=== PATIENT | female | born 1955 | race African-American/Black ===

== ENCOUNTER 2019-09-10 02:35 | Inpatient (IN) | payer BC ==
[~2019-09-10] VITALS: Ht 170.2 cm; Wt 69.3 kg
[2019-09-10] MEDS ORDERED: ONDANSETRON PF 4 MG/2 ML VIAL. IM ONE (03:30)
[2019-09-10] MEDS ORDERED: IV NORMAL SALINE 1000ML BAG 1,000 ML IV ONE ×3 (03:30→08:00)
--- NOTE | 2019-09-10 03:54 | PHYS DOC ---
General Adult EDM: Chief Complaint: HYPOTENSION HPI: HPI: Patient is a 63 year old female presenting to the ED with a chief complaint of lightheadedness and near syncope. EMS state that patient had nausea, vomiting and diarrhea for 1 day. When EMS got the patient had a syncopal episode in front of them. Currently patient is alert and oriented x3. Patient complains of pain to her abdomen. Patient states that she had a bad food exposure and thinks that that is the cause of her symptoms. Patient states that the abdominal pain comes and goes. Patient denies fever, chills, chest pain, shortness of breath. Review of Systems: Review of Systems: Constitutional: Denies fever or chills. [] Eyes: Denies change in visual acuity. [] HENT: Denies nasal congestion or sore throat. [] Respiratory: Denies cough or shortness of breath. [] Cardiovascular: Denies chest pain or edema. [] GI: Complains of abdominal cramps, nausea, vomiting, diarrhea [] : Denies dysuria. [] Neurologic: Denies headache, focal weakness or sensory changes. [] Heart Score: Risk Factors: Risk Factors: DM, Current or recent (<one month) smoker, HTN, HLP, family history of CAD, obesity. Risk Scores: Score 0 - 3: 2.5% MACE over next 6 weeks - Discharge Home Score 4 - 6: 20.3% MACE over next 6 weeks - Admit for Clinical Observation Score 7 - 10: 72.7% MACE over next 6 weeks - Early Invasive Strategies Current Medications: Current Medications Medications (Trade) Dose Ordered Sig/[facility] Start Time Stop Time Status Last Admin Dose Admin Ondansetron HCl (Zofran) 4 mg 1X ONCE 09/10/19 03:30 09/10/19 03:31 DC Sodium Chloride 1,000 ml @ 1,000 mls/hr 1X ONCE 09/10/19 03:30 09/10/19 04:29 Allergies: Allergies: Allergies Coded Allergies Type Severity Reaction Last Updated Verified No Known Drug Allergies 09/10/19 No Physical Exam: PE: Constitutional: Well developed, well nourished, no acute distress, non-toxic appearance. [] HENT: Normocephalic, atraumatic Eyes: EOMI Neck: Normal range of motion, Supple Cardiovascular:Heart rate regular rhythm Lungs & Thorax: Bilateral breath sounds clear to auscultation [] Abdomen: Diffuse abdominal cramping Extremities: No tenderness, ROM intact Neurologic: Alert and oriented X 3 EKG: EKG: [EKG interpretation: 3: 08 on 09/10/2019 HR: 85 Sinus rhythm Regular intervals Normal axis Nonspecific ST changes No STEMI ] Radiology/Procedures: Radiology/Procedures: [] Impression: CT ABD/PELVIS IMPRESSION: 1. Multiple loops of small bowel demonstrating wall thickening and surrounding inflammation consistent with nonspecific enteritis, with considerations including infectious, inflammatory, or ischemic. 2. Mild perihepatic and moderate pelvic free fluid. 3. Colonic diverticulosis. Course & Med Decision Making: Course & Med Decision Making Pertinent Labs and Imaging studies reviewed. (See chart for details) Patient has leukocytosis of 13.0. Patient is received IV fluids in the ER. Patient is also given Zofran [address] abdomen pelvis shows that patient has severe colitis. Patient is given IV antibiotics in the ER. Due to patient presentation, pain control need for IV antibiotics, patient will be admitted for further evaluation and treatment. Will discuss with hospitalist service for admission. Carmenza Disclaimer: Carmenza Disclaimer: This electronic medical record was generated, in whole or in part, using a voice recognition dictation system. Departure Departure Impression: Primary Impression: Colitis Disposition: ADMITTED INPATIENT Admitting Physician: RYAN Condition: IMPROVED Referrals: DRE AGUIRRE MD (PCP) Justicifation of Admission Dx: Justifications for Admission: Justification of Admission Dx: Yes Comments: SEVERE COLITIS JAD DUQUE DO Sep 10, 2019 03:54
[2019-09-10 04:05] LABS: BASO % 0 % (0-3); EOS # 0.1 x10^3/uL (0.0-0.7); EOS % 1 % (0-3); HEMATOCRIT 44.4 % (36.0-47.0); HEMOGLOBIN 14.5 g/dL (12.0-15.5); LYMPH # 1.7 x10^3/uL (1.0-4.8); LYMPH % 13 % (24-48); MEAN CORPUSCULAR HEMOGLOBIN 28 pg (25-35); MEAN CORPUSCULAR HGB CONC 33 g/dL (31-37); MEAN CORPUSCULAR VOLUME 85 fL (79-100); MONO # 0.4 x10^3/uL (0.0-1.1); MONO % 3 % (0-9); NEUT # 10.7 x10^3/uL (1.8-7.7); NEUT % 83 % (31-73); PLATELET COUNT 313 x10^3/uL (140-400); RED BLOOD COUNT 5.24 x10^6/uL (3.50-5.40); RED CELL DISTRIBUTION WIDTH 14.7 % (11.5-14.5)
[2019-09-10] MEDS ORDERED: ONDANSETRON PF 4 MG/2 ML VIAL. IVP ONE (04:15)
[2019-09-10 04:16] LABS: CALCIUM 8.3 mg/dL (8.5-10.1); CREATININE 1.2 mg/dL (0.6-1.0); GFR 54.7; POTASSIUM 3.6 mmol/L (3.5-5.1)
[2019-09-10 04:20] LABS: ALBUMIN 3.2 g/dL (3.4-5.0); ALBUMIN/GLOBULIN RATIO 1.2 (1.0-1.7); TOTAL BILIRUBIN 0.4 mg/dL (0.2-1.0); TOTAL PROTEIN 5.9 g/dL (6.4-8.2)
[2019-09-10] MEDS ORDERED: CONTRAST GIVEN. MC PRN (04:30)
[2019-09-10 04:33] LABS: PROTHROMBIN TIME PATIENT 12.5 SEC (11.7-14.0)
[2019-09-10] MEDS ORDERED: IOHEXOL 300 MG/ML 100ML VIAL. IV ONE (05:00)
--- NOTE | 2019-09-10 05:03 | RAD ---
CT ABD PELV W/ IV CONTRST ONLY History: Reason: VOMITING/DIARRHEA OMNI 300, 75 ML IV / Spl. Instructions: / History: Comparison: None. Technique: After administration of intravenous contrast, helical CT of the abdomen and pelvis was performed from the lung bases through the ischial tuberosities. Coronal and sagittal reconstructions were obtained. 75 mL of Omnipaque 350 were used. One or more of the following dose reduction techniques were utilized: Automated exposure control (AEC), Adjustment of mA and/or kV according to patient size, Use of iterative reconstruction technique such as ASiR, CT scan done according to ALARA and image gently/image wisely Abdomen Findings: The visualized lung bases are clear. The liver, gallbladder, pancreas, spleen, and bilateral adrenal glands are normal. Symmetric renal enhancement. There is no focal renal mass. There is no hydronephrosis. Multiple loops of small bowel demonstrating wall thickening and surrounding inflammation. Moderate colonic diverticulosis. Appendix is normal. Mild perihepatic and moderate pelvic free fluid. There is no mesenteric or retroperitoneal adenopathy. Extensive aortoiliac atherosclerotic disease Urinary bladder is normal. Uterus is present. There is no pelvic or inguinal adenopathy. Degenerative changes of the spine. IMPRESSION: 1. Multiple loops of small bowel demonstrating wall thickening and surrounding inflammation consistent with nonspecific enteritis, with considerations including infectious, inflammatory, or ischemic. 2. Mild perihepatic and moderate pelvic free fluid. 3. Colonic diverticulosis. Electronically signed by: Nikolai Patton MD (09/10/2019 5:00 AM) [facility]
[2019-09-10] MEDS ORDERED: CIPROFLOXACIN 400MG PREMIX 200 ML IV ONE (05:30)
--- NOTE | 2019-09-10 06:25 | NUR ---
The patient, DELANEY NAVARRETE, 63 y/o, F admitted by DEXTER PETE III, DO, was given written information regarding hospital policies, unit procedures and contact persons. RN received report from Veronica OROURKE in the ED at 0625, patient was then transported from the ED to room 420 via gurney at 0638. VSS and afebrile. Bed is in lowest locked position and call light is within reach. RN will continue to monitor patient closely.
[2019-09-10 06:41] LABS: BILIRUBIN,URINE NEGATIVE (NEG); CLARITY,URINE CLEAR; COLOR,URINE YELLOW; NITRITE,URINE NEGATIVE (NEG); PH,URINE 8.5 (<5.0-8.0); PROTEIN,URINE NEGATIVE (NEG-TRACE); UROBILINOGEN,URINE 0.2 mg/dL (0.2 mg/dL)
[2019-09-10 06:55] LABS: BACTERIA,URINE 0 /HPF (0-FEW); RBC,URINE 0 /HPF (0-2); SQUAMOUS EPITHELIAL CELL,UR MOD /LPF; WBC,URINE 0 /HPF (0-4)
[2019-09-10 07:07] VITALS: BP 114/77
[2019-09-10] MEDS ORDERED: ONDANSETRON PF 4 MG/2 ML VIAL. IVP PRN (08:00)
[2019-09-10] MEDS: MORPHINE SULFATE 4 MG/ML VIAL. IV PRN ×3 (08:08→21:41)
[2019-09-10 11:59] VITALS: BP 106/67
[2019-09-10] MEDS ORDERED: CA C1TAB29 PO (14:17)
[2019-09-10] MEDS ORDERED: PANT20TA2 PO (14:17)
[2019-09-10] MEDS ORDERED: BIMA2.5D5 EACHEYE (14:17)
[2019-09-10] MEDS ORDERED: METF-658 PO (14:17)
[2019-09-10] MEDS ORDERED: LISI-334 PO (14:17)
[2019-09-10] MEDS ORDERED: MELO15TA23 PO (14:18)
[2019-09-10] MEDS ORDERED: CALC-31 PO (14:18)
--- NOTE | 2019-09-10 14:40 | HP ---
ADMIT DATE: 09/10/2019 CHIEF COMPLAINT: Nausea, vomiting, diarrhea, abdominal pain, and near syncope. HISTORY OF PRESENT ILLNESS: The patient is a pleasant 63-year-old female, who has had abdominal pain, nausea, vomiting, and diarrhea for about 1-1/2 days. Basically, she also developed lightheadedness last night; so went ahead and came to the emergency room. While in the emergency room, we did some imaging showing colitis. We have placed her on intravenous antibiotics. We have consulted Gastroenterology. The patient is being examined on the medical floor. PAST MEDICAL HISTORY: Previous colitis. ALLERGIES: None. FAMILY HISTORY: Diabetes. SOCIAL HISTORY: She drives a school bus; does not drink, smoke, or take drugs. MEDICATIONS: Reviewed; please refer to the MRAD. REVIEW OF SYSTEMS: GENERAL: No history of weight change, weakness, or fever. SKIN: No bruising, hair changes, or rashes. EYES: No blurred, double, or loss of vision. NOSE AND THROAT: No history of nosebleeds, hoarseness, or sore throat. HEART: No history of palpitations, chest pain, or shortness of breath on exertion. LUNGS: Denies cough, hemoptysis, wheezing, or shortness of breath. GASTROINTESTINAL: She complains of abdominal pain. GENITOURINARY: No history of frequency, urgency, hesitancy, or nocturia. NEUROLOGIC: Denies history of numbness, tingling, tremor, or weakness. PSYCHIATRIC: No history of panic, anxiety, or depression. ENDOCRINE: No history of heat or cold intolerance, polyuria, or polydipsia. EXTREMITIES: Denies muscle weakness, joint pain, pain on walking, or stiffness. PHYSICAL EXAMINATION: VITALS: Within normal limits and are stable. GENERAL: No apparent distress; alert and oriented. HEENT: Normocephalic, atraumatic. External auditory canals are patent. EYES: Extraocular muscles are intact. Pupils are equally round and reactive to light and accommodation. MUSCULOSKELETAL: Well developed, well nourished, good range of motion. ENDOCRINE: No thyromegaly was palpated. LYMPHATICS: No cervical chain or axillary nodes were noted. HEMATOPOIETIC: No bruising. NECK: Supple, no JVD, no thyromegaly was noted. LUNGS: Clear to auscultation in all lung lopez without rhonchi or wheezing. HEART: RRR, S1, S2 present. Peripheral pulses intact, no obvious murmurs were noted. ABDOMEN: She has decreased bowel sounds with some tenderness. EXTREMITIES: Without any cyanosis, clubbing, or edema. Pedal pulses are intact. Homans sign is negative. NEUROLOGIC: Normal speech; normal tone; A and O x3; moves all extremities; no obvious focal deficits. PSYCHIATRIC: Normal affect, normal mood, stable. SKIN: No ulcerations or rashes, good skin turgor, no jaundice. VASCULAR: Good capillary refill. Neurovascular bundle appears to be intact. LABORATORY DATA: White count is 13. Electrolytes are pending. Lactic acid was slightly high at 3.2. Urinalysis is negative. INR is 1. IMAGING: CT of the abdomen shows probable infectious versus inflammatory or ischemic colitis. She has some colonic diverticulosis. ASSESSMENT AND PLAN: Colitis. We will give her intravenous antibiotics, intravenous fluids, clear liquid diet, consult Gastroenterology; home medications, deep vein thrombosis prophylaxis; full code; as-needed Zofran, as-needed morphine, intravenous Cipro, intravenous Flagyl; trend labs. DEXTER PETE DO DR: CLIFF/paige JOB#: [id number] / [id number]
[2019-09-10 15:00] VITALS: BP 108/65
--- NOTE | 2019-09-10 15:08 | PDOC2 ---
GI CONSULT Reason For Consult: N/V/diarrhea/enteritis HPI: HPI: 63 year old female admitted for lightheadedness and near syncope. EMS state that patient had nausea, vomiting and diarrhea for 1 day. When EMS got the patient had a syncopal episode in front of them. She had gone to [place] in [place] and had half of a calzone 2-3 hours before the onset of her abd pain, nausea/vomitng and diarhrea. She sees Jose C York as her GI doctor. He reprotdly did and EGD and colon o her last year that was unrevaling. She has gastroparesis that was a result of a hiatal hernia repair. She takes Erythromycin for gastroparesis. She has had episodes similar to this in the past. CT A/P demonstrated multiple loops of small bowel demonstrating wall thickening and surrounding inflammation consistent with nonspecific enteritis, with considerations including infectious, inflammatory, or ischemic. Mild perihepatic and moderate pelvic free fluid. Colonic diverticulosis. PMH: PMH: PMH Glaucoma Tonsillectomy HTN Arthritis DM Hiatal hernia repair Gastroparesis FMH no crc All NKDA Meds Erythromycin Bmatoprost Lisonopril Meloxicam Metformin Pantoprazole Social History: Smoke: No Drugs: None ROS: Review of Systems: Review of Systems: Constitutional: Denies fever or chills. [] Eyes: Denies change in visual acuity. [] HENT: Denies nasal congestion or sore throat. [] Respiratory: Denies cough or shortness of breath. [] Cardiovascular: Denies chest pain or edema. [] GI: Complains of abdominal cramps, nausea, vomiting, diarrhea [] : Denies dysuria. [] Neurologic: Denies headache, focal weakness or sensory changes. [] VItals: Vitals: Vital Signs Date Time Temp Pulse Resp B/P (MAP) Pulse Ox O2 Delivery O2 Flow Rate FiO2 09/10/19 11:59 98.3 74 18 106/67 (80) 98 Room Air 98.3 Labs: Labs: Laboratory Tests Test 09/10/19 03:30 09/10/19 06:31 09/10/19 07:07 09/10/19 07:35 White Blood Count 13.0 x10^3/uL (4.0-11.0) Red Blood Count 5.24 x10^6/uL (3.50-5.40) Hemoglobin 14.5 g/dL (12.0-15.5) Hematocrit 44.4 % (36.0-47.0) Mean Corpuscular Volume 85 fL (79-100) Mean Corpuscular Hemoglobin 28 pg (25-35) Mean Corpuscular Hemoglobin Concent 33 g/dL (31-37) Red Cell Distribution Width 14.7 % (11.5-14.5) Platelet Count 313 x10^3/uL (140-400) Neutrophils (%) (Auto) 83 % (31-73) Lymphocytes (%) (Auto) 13 % (24-48) Monocytes (%) (Auto) 3 % (0-9) Eosinophils (%) (Auto) 1 % (0-3) Basophils (%) (Auto) 0 % (0-3) Neutrophils # (Auto) 10.7 x10^3/uL (1.8-7.7) Lymphocytes # (Auto) 1.7 x10^3/uL (1.0-4.8) Monocytes # (Auto) 0.4 x10^3/uL (0.0-1.1) Eosinophils # (Auto) 0.1 x10^3/uL (0.0-0.7) Basophils # (Auto) 0.0 x10^3/uL (0.0-0.2) Prothrombin Time 12.5 SEC (11.7-14.0) Prothromb Time International Ratio 1.0 (0.8-1.1) Activated Partial Thromboplast Time 24 SEC (24-38) Sodium Level 144 mmol/L (136-145) Potassium Level 3.6 mmol/L (3.5-5.1) Chloride Level 107 mmol/L (98-107) Carbon Dioxide Level 26 mmol/L (21-32) Anion Gap 11 (6-14) Blood Urea Nitrogen 15 mg/dL (7-20) Creatinine 1.2 mg/dL (0.6-1.0) Estimated GFR (Cockcroft-Gault) 54.7 BUN/Creatinine Ratio 13 (6-20) Glucose Level 173 mg/dL (70-99) Lactic Acid Level 3.2 mmol/L (0.4-2.0) 1.6 mmol/L (0.4-2.0) Calcium Level 8.3 mg/dL (8.5-10.1) Total Bilirubin 0.4 mg/dL (0.2-1.0) Aspartate Amino Transf (AST/SGOT) 22 U/L (15-37) Alanine Aminotransferase (ALT/SGPT) 26 U/L (14-59) Alkaline Phosphatase 70 U/L (46-116) Troponin I Quantitative < 0.017 ng/mL (0.000-0.055) Total Protein 5.9 g/dL (6.4-8.2) Albumin 3.2 g/dL (3.4-5.0) Albumin/Globulin Ratio 1.2 (1.0-1.7) Lipase 133 U/L (73-393) Urine Collection Type Unknown Urine Color Yellow Urine Clarity Clear Urine pH 8.5 (<5.0-8.0) Urine Specific [place] >=1.030 (1.000-1.030) Urine Protein Negative mg/dL (NEG-TRACE) Urine Glucose (UA) Negative mg/dL (NEG) Urine Ketones (Stick) Negative mg/dL (NEG) Urine Blood Negative (NEG) Urine Nitrite Negative (NEG) Urine Bilirubin Negative (NEG) Urine Urobilinogen Dipstick 0.2 mg/dL (0.2 mg/dL) Urine Leukocyte Esterase Negative (NEG) Urine RBC 0 /HPF (0-2) Urine WBC 0 /HPF (0-4) Urine Squamous Epithelial Cells Mod /LPF Urine Bacteria 0 /HPF (0-FEW) Urine Mucus Slight /LPF Glucose (Fingerstick) 112 mg/dL (70-99) Test 09/10/19 12:30 Glucose (Fingerstick) 84 mg/dL (70-99) Imaging: Imaging: Impression: CT ABD/PELVIS IMPRESSION: 1. Multiple loops of small bowel demonstrating wall thickening and surrounding inflammation consistent with nonspecific enteritis, with considerations including infectious, inflammatory, or ischemic. 2. Mild perihepatic and moderate pelvic free fluid. 3. Colonic diverticulosis. PE: Constitutional: Well developed, well nourished, no acute distress, non-toxic appearance. [] HENT: Normocephalic, atraumatic Eyes: EOMI Neck: Normal range of motion, Supple Cardiovascular:Heart rate regular rhythm Lungs & Thorax: Bilateral breath sounds clear to auscultation [] Abdomen: Diffuse abdominal cramping Extremities: No tenderness, ROM intact Neurologic: Alert and oriented X 3 A/P: A/P: A 1) N/V 2) Diarrhea 3) Enteritis P 1) Will get stool studies (she states last episode of diarrhea this am) 2) Consider restrat erythromycin 3) EDER IVEY MD Sep 10, 2019 15:08
[2019-09-10 19:00] VITALS: BP 129/77
[2019-09-10 23:04] VITALS: BP 137/77
[2019-09-11 03:00] VITALS: BP 129/65
[2019-09-11 07:00] VITALS: BP 136/82
--- NOTE | 2019-09-11 08:43 | PDOC ---
PROGRESS NOTES Chief Complaint Chief Complaint A/P: N/V Diarrhea Enteritis HTN Diabetes Hiatal hernia History of Present Illness History of Present Illness Ms Bundy is a 63 yo F admitted for lightheadedness and near syncope. EMS state that patient had nausea, vomiting and diarrhea for 1 day. When EMS got the patient had a syncopal episode in front of them. She had gone to [place] in [place] and had half of a calzone 2-3 hours before the onset of her abd pain, nausea/vomiting and diarrhea. She notes the day prior she did repeat some rice as well She sees Jose C York as her GI doctor. He reportedly did and EGD and colon o her last year that was unrevealing. She has gastroparesis that was a result of a hiatal hernia repair. She takes Erythromycin for gastroparesis. She has had episodes similar to this in the past. CT A/P demonstrated multiple loops of small bowel demonstrating wall thickening and surrounding inflammation consistent with nonspecific enteritis, with considerations including infectious, inflammatory, or ischemic. Mild perihepatic and moderate pelvic free fluid. Colonic diverticulosis. Afebrile. Pain is improved. Tolerated clear liquid diet well this morning. No further diarrhea. Plan: ADAT Vitals Vitals Vital Signs Date Time Temp Pulse Resp B/P (MAP) Pulse Ox O2 Delivery O2 Flow Rate FiO2 09/11/19 07:00 98.4 67 18 136/82 (100) 97 Room Air 98.4 Physical Exam General: Alert, Oriented X3, Cooperative Heart: Regular rate, Normal S1, Normal S2 Lungs: Clear Abdomen: Normal bowel sounds, Soft Extremities: No clubbing, No cyanosis Skin: No rashes, No breakdown Labs LABS Laboratory Tests Test 09/10/19 12:30 09/10/19 17:29 09/10/19 20:28 09/11/19 07:44 Glucose (Fingerstick) 84 mg/dL (70-99) 113 mg/dL (70-99) 83 mg/dL (70-99) 92 mg/dL (70-99) Comment Review of Relevant I have reviewed the following items carlos alberto (where applicable) has been applied. Labs Laboratory Tests Test 09/10/19 03:30 09/10/19 06:31 09/10/19 07:07 09/10/19 07:35 White Blood Count 13.0 x10^3/uL (4.0-11.0) Red Blood Count 5.24 x10^6/uL (3.50-5.40) Hemoglobin 14.5 g/dL (12.0-15.5) Hematocrit 44.4 % (36.0-47.0) Mean Corpuscular Volume 85 fL (79-100) Mean Corpuscular Hemoglobin 28 pg (25-35) Mean Corpuscular Hemoglobin Concent 33 g/dL (31-37) Red Cell Distribution Width 14.7 % (11.5-14.5) Platelet Count 313 x10^3/uL (140-400) Neutrophils (%) (Auto) 83 % (31-73) Lymphocytes (%) (Auto) 13 % (24-48) Monocytes (%) (Auto) 3 % (0-9) Eosinophils (%) (Auto) 1 % (0-3) Basophils (%) (Auto) 0 % (0-3) Neutrophils # (Auto) 10.7 x10^3/uL (1.8-7.7) Lymphocytes # (Auto) 1.7 x10^3/uL (1.0-4.8) Monocytes # (Auto) 0.4 x10^3/uL (0.0-1.1) Eosinophils # (Auto) 0.1 x10^3/uL (0.0-0.7) Basophils # (Auto) 0.0 x10^3/uL (0.0-0.2) Prothrombin Time 12.5 SEC (11.7-14.0) Prothromb Time International Ratio 1.0 (0.8-1.1) Activated Partial Thromboplast Time 24 SEC (24-38) Sodium Level 144 mmol/L (136-145) Potassium Level 3.6 mmol/L (3.5-5.1) Chloride Level 107 mmol/L (98-107) Carbon Dioxide Level 26 mmol/L (21-32) Anion Gap 11 (6-14) Blood Urea Nitrogen 15 mg/dL (7-20) Creatinine 1.2 mg/dL (0.6-1.0) Estimated GFR (Cockcroft-Gault) 54.7 BUN/Creatinine Ratio 13 (6-20) Glucose Level 173 mg/dL (70-99) Lactic Acid Level 3.2 mmol/L (0.4-2.0) 1.6 mmol/L (0.4-2.0) Calcium Level 8.3 mg/dL (8.5-10.1) Total Bilirubin 0.4 mg/dL (0.2-1.0) Aspartate Amino Transf (AST/SGOT) 22 U/L (15-37) Alanine Aminotransferase (ALT/SGPT) 26 U/L (14-59) Alkaline Phosphatase 70 U/L (46-116) Troponin I Quantitative < 0.017 ng/mL (0.000-0.055) Total Protein 5.9 g/dL (6.4-8.2) Albumin 3.2 g/dL (3.4-5.0) Albumin/Globulin Ratio 1.2 (1.0-1.7) Lipase 133 U/L (73-393) Urine Collection Type Unknown Urine Color Yellow Urine Clarity Clear Urine pH 8.5 (<5.0-8.0) Urine Specific [place] >=1.030 (1.000-1.030) Urine Protein Negative mg/dL (NEG-TRACE) Urine Glucose (UA) Negative mg/dL (NEG) Urine Ketones (Stick) Negative mg/dL (NEG) Urine Blood Negative (NEG) Urine Nitrite Negative (NEG) Urine Bilirubin Negative (NEG) Urine Urobilinogen Dipstick 0.2 mg/dL (0.2 mg/dL) Urine Leukocyte Esterase Negative (NEG) Urine RBC 0 /HPF (0-2) Urine WBC 0 /HPF (0-4) Urine Squamous Epithelial Cells Mod /LPF Urine Bacteria 0 /HPF (0-FEW) Urine Mucus Slight /LPF Glucose (Fingerstick) 112 mg/dL (70-99) Test 09/10/19 12:30 09/10/19 17:29 09/10/19 20:28 09/11/19 07:44 Glucose (Fingerstick) 84 mg/dL (70-99) 113 mg/dL (70-99) 83 mg/dL (70-99) 92 mg/dL (70-99) Laboratory Tests Test 09/10/19 12:30 09/10/19 17:29 09/10/19 20:28 09/11/19 07:44 Glucose (Fingerstick) 84 mg/dL (70-99) 113 mg/dL (70-99) 83 mg/dL (70-99) 92 mg/dL (70-99) Medications Current Medications Sodium Chloride 1,000 ml @ 1,000 mls/hr 1X ONCE IV Last administered on 09/10/19at 03:48; Start 09/10/19 at 03:30; Stop 09/10/19 at 04:29; Status DC Ondansetron HCl (Zofran) 4 mg 1X ONCE IM ; Start 09/10/19 at 03:30; Stop 09/10/19 at 03:31; Status DC Ondansetron HCl (Zofran) 4 mg 1X ONCE IVP Last administered on 09/10/19at 03:57; Start 09/10/19 at 04:15; Stop 09/10/19 at 04:16; Status DC Iohexol (Omnipaque 300 Mg/ml) 75 ml 1X ONCE IV Last administered on 09/10/19at 04:53; Start 09/10/19 at 05:00; Stop 09/10/19 at 05:01; Status DC Info (CONTRAST GIVEN -- Rx MONITORING) 1 each PRN DAILY PRN MC SEE COMMENTS; Start 09/10/19 at 04:30; Stop 09/12/19 at 04:29 Metronidazole 100 ml @ 100 mls/hr 1X ONCE IV Last administered on 09/10/19at 05:20; Start 09/10/19 at 05:30; Stop 09/10/19 at 06:29; Status DC Ciprofloxacin/ Dextrose 200 ml @ 200 mls/hr 1X ONCE IV Last administered on 09/10/19at 05:18; Start 09/10/19 at 05:30; Stop 09/10/19 at 06:29; Status DC Sodium Chloride 1,000 ml @ 1,000 mls/hr 1X ONCE IV Last administered on 09/10/19at 05:28; Start 09/10/19 at 05:30; Stop 09/10/19 at 06:29; Status DC Ondansetron HCl (Zofran) 4 mg PRN Q8HRS PRN IVP NAUSEA/VOMITING Last administered on 09/10/19at 21:41; Start 09/10/19 at 08:00 Morphine Sulfate (Morphine Sulfate) 4 mg PRN Q2HR PRN IV PAIN Last administered on 09/10/19at 21:41; Start 7/5/20 at 08:00 Sodium Chloride 1,000 ml @ 125 mls/hr 1X ONCE IV Last administered on 09/10/19at 08:09; Start 09/10/19 at 08:00; Stop 09/10/19 at 15:59; Status DC Active Scripts Active Reported Meloxicam 15 Mg Tablet 1 Tab PO DAILY 30 Days Calcium 500 + D Tablet (Calcium Carbonate/Vitamin D3) 1 Each Tablet 1 Tab PO DAILY 30 Days Vitamin D3-Aloe 1,000 Unit Tab (Ca Cmb 1/Vit D3/B-6/Fa/B12/Av) 1 Each Tablet 1 Each PO BID Bimatoprost 2.5 Ml Drops 1 Drop EACHEYE QHS 30 Days Protonix (Pantoprazole Sodium) 20 Mg Tablet.dr 40 Mg PO DAILY Metformin Hcl Er (Metformin Hcl) 500 Mg Tab.er.24h 500 Mg PO BIDWMEALS Lisinopril 20 Mg Tablet 1 Tab PO DAILY Vitals/I & O Vital Sign - Last 24 Hours 09/10/19 09/10/19 09/10/19 09/10/19 11:59 15:00 16:23 16:53 Temp 98.3 97.8 98.3 97.8 Pulse 74 77 Resp 18 18 B/P (MAP) 106/67 (80) 108/65 (79) Pulse Ox 98 98 O2 Delivery Room Air Room Air Room Air Room Air 09/10/19 09/10/19 09/10/19 09/10/19 19:00 21:41 22:11 23:04 Temp 98.2 98.8 98.2 98.8 Pulse 67 83 Resp 18 18 B/P (MAP) 129/77 (94) 137/77 (97) Pulse Ox 96 95 O2 Delivery Room Air Room Air Room Air Room Air 09/11/19 09/11/19 03:00 07:00 Temp 98.7 98.4 98.7 98.4 Pulse 77 67 Resp 18 18 B/P (MAP) 129/65 (86) 136/82 (100) Pulse Ox 96 97 O2 Delivery Room Air Room Air Intake and Output 09/10/19 09/10/19 09/11/19 14:59 22:59 06:59 Intake Total 400 ml Output Total 220 ml 100 ml Balance -220 ml 300 ml Justicifation of Admission Dx: Justifications for Admission: Justification of Admission Dx: Yes BRENDAN MANDUJANO MD Sep 11, 2019 08:43
--- NOTE | 2019-09-11 09:03 | NUR ---
SW following. Discussed with RN, pt from home, gets around fine. RN advised no SW needs at this time. SW will continue to follow should any discharge planning needs arise.
[2019-09-11 11:00] VITALS: BP 142/93
[2019-09-11] MEDS ORDERED: MELOXICAM 7.5 MG TABLET PO SCH ×2 (11:00→11:01)
[2019-09-11] MEDS ORDERED: KETOROLAC 15 MG/ML VIAL. IVP ONE ×2 (11:00→12:00)
[2019-09-11] MEDS: PANTOPRAZOLE 40 MG TABLET.DR. PO SCH (11:13)
[2019-09-11] MEDS: LISINOPRIL 20 MG TABLET PO SCH (11:13)
[2019-09-11] MEDS: CALCIUM CARB/VIT D3 500/200 TABLET. PO SCH (11:13)
--- NOTE | 2019-09-11 12:30 | PDOC ---
Subjective: Subjective: Feels better - hungry. Tolerating clear liquids. Feels bloated. No diarrhea, no abd pain. Objective: Vital Signs: Vital Signs Date Time Temp Pulse Resp B/P (MAP) Pulse Ox O2 Delivery O2 Flow Rate FiO2 09/11/19 11:13 67 136/82 09/11/19 11:00 98.2 20 100 Room Air 98.2 Labs: Laboratory Tests Test 09/10/19 12:30 09/10/19 17:29 09/10/19 20:28 09/11/19 07:44 Glucose (Fingerstick) 84 mg/dL (70-99) 113 mg/dL (70-99) 83 mg/dL (70-99) 92 mg/dL (70-99) Test 09/11/19 11:52 Glucose (Fingerstick) 105 mg/dL (70-99) PE: GEN: NAD LUNGS: CTAB HEART: RRR ABD: quiet, soft, non-tender NEURO/PSYCH: A & O 3 A/P: N/v, diarrhea - resolving Enteritis on CT -- Seen this morning when [employer] unavailable ADAT - she wants GI soft. DC per primary if tolerates. D/w nurse. Consider restarting e-mycin w/ h/o gastroparesis. Follow-up w/ establish psychological operations officer, Dr. Jose C York. Justicifation of Admission Dx: Justifications for Admission: Justification of Admission Dx: Yes PATRICK CHILDS Sep 11, 2019 12:30
[2019-09-11 15:00] VITALS: BP 153/81
[2019-09-11] MEDS: KETOROLAC 30 MG/ML VIAL. IVP PRN ×2 (15:47→22:27)
[2019-09-11 19:00] VITALS: BP 162/91
[2019-09-11] MEDS ORDERED: LATANOPROST 0.005% OPHTH SOLUTION 2.5ML BOTTLE. OU SCH (21:00)
[2019-09-11 23:00] VITALS: BP 142/80
[2019-09-12 03:00] VITALS: BP 151/90
[2019-09-12] MEDS: PANTOPRAZOLE 40 MG TABLET.DR. PO SCH (06:43)
[2019-09-12] MEDS: KETOROLAC 30 MG/ML VIAL. IVP PRN (06:46)
--- NOTE | 2019-09-12 06:57 | EKG ---
[facility] [address] [place] [address] Test Date: 2019-09-10 Test Time: 03:08:07 Pat Name: DELANEY NAVARRETE Department: Room: Gender: F Time Study Technician: : [id number] Requested By: JAD DUQUE Order Number: [id number] Reading MD: Measurements Intervals [place] Rate: 85 P: 28 MD: 154 QRS: 48 QRSD: 72 T: 28 QT: 372 QTc: 448 Interpretive Statements SINUS RHYTHM COMPLEX(ES) WITH ABERRANT INTRAVENTRICULAR CONDUCTION ABNORMAL ECG RI6.02 No previous ECG available for comparison
[2019-09-12 07:00] VITALS: BP 160/78
--- NOTE | 2019-09-12 07:55 | PDOC ---
PROGRESS NOTES Chief Complaint Chief Complaint A/P: N/V Diarrhea Enteritis HTN Diabetes Hiatal hernia History of Present Illness History of Present Illness Ms Bundy is a 63 yo F admitted for lightheadedness and near syncope. EMS state that patient had nausea, vomiting and diarrhea for 1 day. When EMS got the patient had a syncopal episode in front of them. She had gone to [facility] in [place] and had half of a calzone 2-3 hours before the onset of her abd pain, nausea/vomiting and diarrhea. She notes the day prior she did repeat some rice as well She sees Jose C York as her GI doctor. He reportedly did and EGD and colon o her last year that was unrevealing. She has gastroparesis that was a result of a hiatal hernia repair. She takes Erythromycin for gastroparesis. She has had episodes similar to this in the past. CT A/P demonstrated multiple loops of small bowel demonstrating wall thickening and surrounding inflammation consistent with nonspecific enteritis, with considerations including infectious, inflammatory, or ischemic. Mild perihepatic and moderate pelvic free fluid. Colonic diverticulosis. 09/10: Afebrile. Pain is improved. Tolerated clear liquid diet well this mornin g. No further diarrhea. Tolerated diet advancement. Headache resolved with toradol. Restarted on home erythomycin for GI motility. No further diarrhea. WBC normalized. B12 in 200s. Plan: ADAT, home today Vitals Vitals Vital Signs Date Time Temp Pulse Resp B/P (MAP) Pulse Ox O2 Delivery O2 Flow Rate FiO2 09/12/19 07:00 97.9 62 18 160/78 (105) 98 Room Air 97.9 Physical Exam General: Alert, Oriented X3, Cooperative Heart: Regular rate, Normal S1, Normal S2 Lungs: Clear Abdomen: Normal bowel sounds, Soft Extremities: No clubbing, No cyanosis Skin: No rashes, No breakdown Labs LABS Laboratory Tests Test 09/11/19 11:52 09/11/19 17:04 09/11/19 20:48 09/12/19 07:34 Glucose (Fingerstick) 105 mg/dL (70-99) 129 mg/dL (70-99) 137 mg/dL (70-99) 116 mg/dL (70-99) Comment Review of Relevant I have reviewed the following items carlos alberto (where applicable) has been applied. Labs Laboratory Tests Test 09/10/19 12:30 09/10/19 17:29 09/10/19 20:28 09/11/19 07:44 Glucose (Fingerstick) 84 mg/dL (70-99) 113 mg/dL (70-99) 83 mg/dL (70-99) 92 mg/dL (70-99) Test 09/11/19 11:52 09/11/19 17:04 09/11/19 20:48 09/12/19 07:34 Glucose (Fingerstick) 105 mg/dL (70-99) 129 mg/dL (70-99) 137 mg/dL (70-99) 116 mg/dL (70-99) Laboratory Tests Test 09/11/19 11:52 09/11/19 17:04 09/11/19 20:48 09/12/19 07:34 Glucose (Fingerstick) 105 mg/dL (70-99) 129 mg/dL (70-99) 137 mg/dL (70-99) 116 mg/dL (70-99) Medications Current Medications Sodium Chloride 1,000 ml @ 1,000 mls/hr 1X ONCE IV Last administered on 09/10/19at 03:48; Start 09/10/19 at 03:30; Stop 09/10/19 at 04:29; Status DC Ondansetron HCl (Zofran) 4 mg 1X ONCE IM ; Start 09/10/19 at 03:30; Stop 09/10/19 at 03:31; Status DC Ondansetron HCl (Zofran) 4 mg 1X ONCE IVP Last administered on 09/10/19at 03:57; Start 09/10/19 at 04:15; Stop 09/10/19 at 04:16; Status DC Iohexol (Omnipaque 300 Mg/ml) 75 ml 1X ONCE IV Last administered on 09/10/19at 04:53; Start 09/10/19 at 05:00; Stop 09/10/19 at 05:01; Status DC Info (CONTRAST GIVEN -- Rx MONITORING) 1 each PRN DAILY PRN MC SEE COMMENTS; Start 09/10/19 at 04:30; Stop 09/12/19 at 04:29; Status DC Metronidazole 100 ml @ 100 mls/hr 1X ONCE IV Last administered on 09/10/19at 05:20; Start 09/10/19 at 05:30; Stop 09/10/19 at 06:29; Status DC Ciprofloxacin/ Dextrose 200 ml @ 200 mls/hr 1X ONCE IV Last administered on 09/10/19at 05:18; Start 09/10/19 at 05:30; Stop 09/10/19 at 06:29; Status DC Sodium Chloride 1,000 ml @ 1,000 mls/hr 1X ONCE IV Last administered on at 05:28; Start 09/10/19 at 05:30; Stop 09/10/19 at 06:29; Status DC Ondansetron HCl (Zofran) 4 mg PRN Q8HRS PRN IVP NAUSEA/VOMITING Last administered on 09/10/19at 21:41; Start 09/10/19 at 08:00 Morphine Sulfate (Morphine Sulfate) 4 mg PRN Q2HR PRN IV PAIN Last administered on 09/10/19at 21:41; Start 09/10/19 at 08:00 Sodium Chloride 1,000 ml @ 125 mls/hr 1X ONCE IV Last administered on 09/10/19at 08:09; Start 09/10/19 at 08:00; Stop 09/10/19 at 15:59; Status DC Ketorolac Tromethamine (Toradol 15mg Vial) 15 mg 1X ONCE IVP Last administered on 09/11/19at 11:13; Start 09/11/19 at 11:00; Stop 09/11/19 at 11:01; Status DC Lisinopril (Prinivil) 20 mg DAILY PO Last administered on 09/11/19at 11:13; Start 09/11/19 at 11:00 Metformin HCl (Glucophage Xr) 500 mg BIDWMEALS PO ; Start 09/12/19 at 08:00 Latanoprost (Xalatan) 1 drop QHS OU ; Start 09/11/19 at 21:00 Calcium/Vitamin D (Oscal D 500mg/ 200uts) 1 tab DAILY PO Last administered on 09/11/19at 11:13; Start 09/11/19 at 11:00 Meloxicam (Mobic) 15 mg DAILY PO ; Start 09/11/19 at 11:00; Status Cancel Pantoprazole Sodium (Protonix) 40 mg DAILYAC PO Last administered on 09/12/19at 06:43; Start 09/11/19 at 11:30 Meloxicam (Mobic) 15 mg DAILY PO ; Start 09/11/19 at 11:01; Stop 09/11/19 at 15:11; Status DC Ketorolac Tromethamine (Toradol 15mg Vial) 15 mg 1X ONCE IVP ; Start 09/11/19 at 12:00; Stop 09/11/19 at 12:01; Status DC Ketorolac Tromethamine (Toradol 30mg Vial) 30 mg PRN Q6HRS PRN IVP MODERATE PAIN Last administered on 09/12/19at 06:46; Start 09/11/19 at 15:15; Stop 09/16/19 at 15:14 Active Scripts Active Reported Meloxicam 15 Mg Tablet 1 Tab PO DAILY 30 Days Calcium 500 + D Tablet (Calcium Carbonate/Vitamin D3) 1 Each Tablet 1 Tab PO DAILY 30 Days Vitamin D3-Aloe 1,000 Unit Tab (Ca Cmb 1/Vit D3/B-6/Fa/B12/Av) 1 Each Tablet 1 Each PO BID Bimatoprost 2.5 Ml Drops 1 Drop EACHEYE QHS 30 Days Protonix (Pantoprazole Sodium) 20 Mg Tablet.dr 40 Mg PO DAILY Metformin Hcl Er (Metformin Hcl) 500 Mg Tab.er.24h 500 Mg PO BIDWMEALS Lisinopril 20 Mg Tablet 1 Tab PO DAILY Vitals/I & O Vital Sign - Last 24 Hours 09/11/19 09/11/19 09/11/19 09/11/19 11:00 11:13 15:00 19:00 Temp 98.2 97.7 98.0 98.2 97.7 98.0 Pulse 70 67 68 57 Resp 20 18 20 B/P (MAP) 142/93 (109) 136/82 153/81 (105) 162/91 (114) Pulse Ox 100 97 97 O2 Delivery Room Air Room Air Room Air 09/11/19 09/12/19 09/12/19 23:00 03:00 07:00 Temp 98.0 97.3 97.9 98.0 97.3 97.9 Pulse 60 60 62 Resp 18 18 18 B/P (MAP) 142/80 (100) 151/90 (110) 160/78 (105) Pulse Ox 97 98 98 O2 Delivery Room Air Room Air Room Air Intake and Output 09/11/19 09/11/19 09/12/19 15:00 23:00 07:00 Intake Total 100 ml 100 ml 300 ml Output Total 2500 ml Balance 100 ml 100 ml -2200 ml Justicifation of Admission Dx: Justifications for Admission: Justification of Admission Dx: Yes BRENDAN MANDUJANO MD Sep 12, 2019 07:54
[2019-09-12] MEDS ORDERED: metFORMIN XR 500 MG TAB.ER.24H PO SCH (08:00)
[2019-09-12] MEDS: CALCIUM CARB/VIT D3 500/200 TABLET. PO SCH (08:44)
[2019-09-12] MEDS: LISINOPRIL 20 MG TABLET PO SCH (08:45)
[2019-09-12 08:49] LABS: BASO % 1 % (0-3); EOS # 0.3 x10^3/uL (0.0-0.7); EOS % 6 % (0-3); HEMATOCRIT 32.3 % (36.0-47.0); HEMOGLOBIN 10.8 g/dL (12.0-15.5); LYMPH # 1.9 x10^3/uL (1.0-4.8); LYMPH % 42 % (24-48); MEAN CORPUSCULAR HEMOGLOBIN 28 pg (25-35); MEAN CORPUSCULAR HGB CONC 34 g/dL (31-37); MEAN CORPUSCULAR VOLUME 84 fL (79-100); MONO # 0.3 x10^3/uL (0.0-1.1); MONO % 7 % (0-9); NEUT # 1.9 x10^3/uL (1.8-7.7); NEUT % 44 % (31-73); PLATELET COUNT 271 x10^3/uL (140-400); RED BLOOD COUNT 3.85 x10^6/uL (3.50-5.40); RED CELL DISTRIBUTION WIDTH 14.2 % (11.5-14.5); WHITE BLOOD COUNT 4.4 x10^3/uL (4.0-11.0)
[2019-09-12 09:10] LABS: CALCIUM 8.2 mg/dL (8.5-10.1); CREATININE 1.1 mg/dL (0.6-1.0); GFR 60.5; POTASSIUM 3.9 mmol/L (3.5-5.1); TOTAL BILIRUBIN 0.2 mg/dL (0.2-1.0); TOTAL PROTEIN 5.9 g/dL (6.4-8.2)
--- NOTE | 2019-09-12 09:37 | PDOC ---
Subjective: Subjective: Feels much better than when admitted, feels well enough to go home. Abdomen isn't back to normal though - bloated, sore. No n/v. Passing gas, no stool. Usually takes e-mycin 250mg 1/2 tab BIDAC. Says BP has been high - missed several days of meds during illness. Objective: Vital Signs: Vital Signs Date Time Temp Pulse Resp B/P (MAP) Pulse Ox O2 Delivery O2 Flow Rate FiO2 09/12/19 08:45 62 160/78 09/12/19 07:00 97.9 18 98 Room Air 97.9 Labs: Laboratory Tests Test 09/11/19 11:52 09/11/19 17:04 09/11/19 20:48 09/12/19 07:34 Glucose (Fingerstick) 105 mg/dL 129 mg/dL 137 mg/dL 116 mg/dL Test 09/12/19 08:20 White Blood Count 4.4 x10^3/uL Red Blood Count 3.85 x10^6/uL Hemoglobin 10.8 g/dL Hematocrit 32.3 % Mean Corpuscular Volume 84 fL Mean Corpuscular Hemoglobin 28 pg Mean Corpuscular Hemoglobin Concent 34 g/dL Red Cell Distribution Width 14.2 % Platelet Count 271 x10^3/uL Neutrophils (%) (Auto) 44 % Lymphocytes (%) (Auto) 42 % Monocytes (%) (Auto) 7 % Eosinophils (%) (Auto) 6 % Basophils (%) (Auto) 1 % Neutrophils # (Auto) 1.9 x10^3/uL Lymphocytes # (Auto) 1.9 x10^3/uL Monocytes # (Auto) 0.3 x10^3/uL Eosinophils # (Auto) 0.3 x10^3/uL Basophils # (Auto) 0.0 x10^3/uL Sodium Level 144 mmol/L Potassium Level 3.9 mmol/L Chloride Level 110 mmol/L Carbon Dioxide Level 24 mmol/L Anion Gap 10 Blood Urea Nitrogen 9 mg/dL Creatinine 1.1 mg/dL Estimated GFR (Cockcroft-Gault) 60.5 BUN/Creatinine Ratio 8 Glucose Level 182 mg/dL Calcium Level 8.2 mg/dL Total Bilirubin 0.2 mg/dL Aspartate Amino Transf (AST/SGOT) 28 U/L Alanine Aminotransferase (ALT/SGPT) 29 U/L Alkaline Phosphatase 79 U/L Total Protein 5.9 g/dL Albumin 3.0 g/dL Albumin/Globulin Ratio 1.0 PE: GEN: NAD LUNGS: clear anteriorly HEART: RRR ABD: BS more active today, soft, non-specifically uncomfortable - ?muscle NEURO/PSYCH: A & O 3 A/P: Abdominal soreness, bloating N/v, diarrhea - resolved; enteritis on CT H/o gastroparesis Anemia - no obvious bleeding; recent 'scopes w/ Dr. Jose C York -- Improved. Will check anemia parameters for completeness. She'd like to restart e-mycin. DC per primary. Noted w/ iron deficiency - would follow-up w/ GI re: this. Justicifation of Admission Dx: Justifications for Admission: Justification of Admission Dx: Yes PATRICK CHILDS Sep 12, 2019 09:37
--- NOTE | 2019-09-12 09:54 | NUR ---
SW following. Discussed with RN, pt on GI soft diet today. RN advised no SW needs, anticipates possible discharge home with self care today. SW will continue to follow should any discharge needs arise.
[2019-09-12] MEDS ORDERED: ERYTHROMYCIN BASE 250 MG TABLET PO SCH (10:00)
[2019-09-12 11:00] VITALS: BP 154/97
[2019-09-12] MEDS ORDERED: TRAM50TA PO (11:30)
[2019-09-12] MEDS ORDERED: CYANOCOBALAMIN (VITAMIN B-12) 1,000 MCG/ML VIAL IM ONE (11:30)
--- NOTE | 2019-09-12 11:34 | PDOC3 ---
Discharge Summary Visit Information Date of Admission: Sep 10, 2019 Date of Discharge: Sep 12, 2019 Admitting Diagnosis: Intractable nausea and vomiting Final Diagnosis Enteritis/colitis Brief Hospital Course Allergies Allergies Coded Allergies Type Severity Reaction Last Updated Verified No Known Drug Allergies 09/10/19 No Vital Signs Vital Signs Date Time Temp Pulse Resp B/P (MAP) Pulse Ox O2 Delivery O2 Flow Rate FiO2 09/12/19 11:00 97.8 64 154/97 (116) 97 97.8 09/12/19 07:00 18 Room Air Lab Results Laboratory Tests Test 09/10/19 12:30 09/10/19 17:29 09/10/19 20:28 09/11/19 07:44 Glucose (Fingerstick) 84 mg/dL (70-99) 113 mg/dL (70-99) 83 mg/dL (70-99) 92 mg/dL (70-99) Test 09/11/19 11:52 09/11/19 17:04 09/11/19 20:48 09/12/19 07:34 Glucose (Fingerstick) 105 mg/dL (70-99) 129 mg/dL (70-99) 137 mg/dL (70-99) 116 mg/dL (70-99) Test 09/12/19 08:20 09/12/19 11:30 White Blood Count 4.4 x10^3/uL (4.0-11.0) Red Blood Count 3.85 x10^6/uL (3.50-5.40) Hemoglobin 10.8 g/dL (12.0-15.5) Hematocrit 32.3 % (36.0-47.0) Mean Corpuscular Volume 84 fL (79-100) Mean Corpuscular Hemoglobin 28 pg (25-35) Mean Corpuscular Hemoglobin Concent 34 g/dL (31-37) Red Cell Distribution Width 14.2 % (11.5-14.5) Platelet Count 271 x10^3/uL (140-400) Neutrophils (%) (Auto) 44 % (31-73) Lymphocytes (%) (Auto) 42 % (24-48) Monocytes (%) (Auto) 7 % (0-9) Eosinophils (%) (Auto) 6 % (0-3) Basophils (%) (Auto) 1 % (0-3) Neutrophils # (Auto) 1.9 x10^3/uL (1.8-7.7) Lymphocytes # (Auto) 1.9 x10^3/uL (1.0-4.8) Monocytes # (Auto) 0.3 x10^3/uL (0.0-1.1) Eosinophils # (Auto) 0.3 x10^3/uL (0.0-0.7) Basophils # (Auto) 0.0 x10^3/uL (0.0-0.2) Sodium Level 144 mmol/L (136-145) Potassium Level 3.9 mmol/L (3.5-5.1) Chloride Level 110 mmol/L (98-107) Carbon Dioxide Level 24 mmol/L (21-32) Anion Gap 10 (6-14) Blood Urea Nitrogen 9 mg/dL (7-20) Creatinine 1.1 mg/dL (0.6-1.0) Estimated GFR (Cockcroft-Gault) 60.5 BUN/Creatinine Ratio 8 (6-20) Glucose Level 182 mg/dL (70-99) Calcium Level 8.2 mg/dL (8.5-10.1) Iron Level 21 ug/dL (50-170) Total Iron Binding Capacity 270 ug/dL (250-450) Iron Saturation 8 % (15-34) Total Bilirubin 0.2 mg/dL (0.2-1.0) Aspartate Amino Transf (AST/SGOT) 28 U/L (15-37) Alanine Aminotransferase (ALT/SGPT) 29 U/L (14-59) Alkaline Phosphatase 79 U/L (46-116) Total Protein 5.9 g/dL (6.4-8.2) Albumin 3.0 g/dL (3.4-5.0) Albumin/Globulin Ratio 1.0 (1.0-1.7) Vitamin B12 Level 268 pg/mL (247-911) Glucose (Fingerstick) 111 mg/dL (70-99) Laboratory Tests Test 09/11/19 11:52 09/11/19 17:04 09/11/19 20:48 09/12/19 07:34 Glucose (Fingerstick) 105 mg/dL (70-99) 129 mg/dL (70-99) 137 mg/dL (70-99) 116 mg/dL (70-99) Test 09/12/19 08:20 09/12/19 11:30 White Blood Count 4.4 x10^3/uL (4.0-11.0) Red Blood Count 3.85 x10^6/uL (3.50-5.40) Hemoglobin 10.8 g/dL (12.0-15.5) Hematocrit 32.3 % (36.0-47.0) Mean Corpuscular Volume 84 fL (79-100) Mean Corpuscular Hemoglobin 28 pg (25-35) Mean Corpuscular Hemoglobin Concent 34 g/dL (31-37) Red Cell Distribution Width 14.2 % (11.5-14.5) Platelet Count 271 x10^3/uL (140-400) Neutrophils (%) (Auto) 44 % (31-73) Lymphocytes (%) (Auto) 42 % (24-48) Monocytes (%) (Auto) 7 % (0-9) Eosinophils (%) (Auto) 6 % (0-3) Basophils (%) (Auto) 1 % (0-3) Neutrophils # (Auto) 1.9 x10^3/uL (1.8-7.7) Lymphocytes # (Auto) 1.9 x10^3/uL (1.0-4.8) Monocytes # (Auto) 0.3 x10^3/uL (0.0-1.1) Eosinophils # (Auto) 0.3 x10^3/uL (0.0-0.7) Basophils # (Auto) 0.0 x10^3/uL (0.0-0.2) Sodium Level 144 mmol/L (136-145) Potassium Level 3.9 mmol/L (3.5-5.1) Chloride Level 110 mmol/L (98-107) Carbon Dioxide Level 24 mmol/L (21-32) Anion Gap 10 (6-14) Blood Urea Nitrogen 9 mg/dL (7-20) Creatinine 1.1 mg/dL (0.6-1.0) Estimated GFR (Cockcroft-Gault) 60.5 BUN/Creatinine Ratio 8 (6-20) Glucose Level 182 mg/dL (70-99) Calcium Level 8.2 mg/dL (8.5-10.1) Iron Level 21 ug/dL (50-170) Total Iron Binding Capacity 270 ug/dL (250-450) Iron Saturation 8 % (15-34) Total Bilirubin 0.2 mg/dL (0.2-1.0) Aspartate Amino Transf (AST/SGOT) 28 U/L (15-37) Alanine Aminotransferase (ALT/SGPT) 29 U/L (14-59) Alkaline Phosphatase 79 U/L (46-116) Total Protein 5.9 g/dL (6.4-8.2) Albumin 3.0 g/dL (3.4-5.0) Albumin/Globulin Ratio 1.0 (1.0-1.7) Vitamin B12 Level 268 pg/mL (247-911) Glucose (Fingerstick) 111 mg/dL (70-99) Brief Hospital Course Ms Bundy is a 63 yo F admitted for lightheadedness and near syncope. EMS state that patient had nausea, vomiting and diarrhea for 1 day. When EMS got the pa nicolle had a syncopal episode in front of them. She had gone to [employer] in [place] and had half of a calzone 2-3 hours before the onset of her abd pain, nausea/vomiting and diarrhea. She notes the day prior she did repeat some rice as well She sees Jose C York as her GI doctor. He reportedly did and EGD and colon o her last year that was unrevealing. She has gastroparesis that was a result of a hiatal hernia repair. She takes Erythromycin for gastroparesis. She has had episodes similar to this in the past. CT A/P demonstrated multiple loops of small bowel demonstrating wall thickening and surrounding inflammation consistent with nonspecific enteritis, with considerations including infectious, inflammatory, or ischemic. Mild perihepatic and moderate pelvic free fluid. Colonic diverticulosis. 09/10: Afebrile. Pain is improved. Tolerated clear liquid diet well this morning. No further diarrhea. Tolerated diet advancement. Headache resolved with toradol. Restarted on home erythomycin for GI motility. No further diarrhea. WBC normalized. B12 in 200s. Consults: GI Problem list: N/V Diarrhea Enteritis HTN Diabetes Hiatal hernia Gastroparesis Iron deficiency Vitamin B12 deficiency Plan: ADAT, home today Greater than 30 minutes spent on d/c home Discharge Information Condition at Discharge: Improved Follow Up: Weeks Disposition/Orders: D/C to Home Scheduled Bimatoprost (Bimatoprost) 2.5 Ml Drops, 1 DROP EACHEYE QHS for glaucoma for 30 Days, Ref 0 (Reported) Entered as Reported by: SUNDAY MARTINEZ RN on 09/10/191416 Last Taken: Unknown Dose on 09/10/19 Last Action: Converted on 09/11/191055 by CLINT BEARD RN Ca Cmb 1/Vit D3/B-6/Fa/B12/Av (Vitamin D3-Aloe 1,000 Unit Tab) 1 Each Tablet, 1 EACH PO BID for low vitamind d 3, (Reported) Entered as Reported by: SUNDAY MARTINEZ RN on 09/10/191416 Last Taken: Unknown Dose on 09/10/19 Last Action: New Order on 09/10/191416 by SUNDAY MARTINEZ RN Calcium Carbonate/Vitamin D3 (Calcium 500 + D Tablet) 1 Each Tablet, 1 TAB PO DAILY for low calcium for 30 Days, #30 Ref 0 (Reported) Entered as Reported by: SUNDAY MARTINEZ RN on 09/10/191417 Last Taken: Unknown Dose on 09/10/19 Last Action: Converted on 09/11/191055 by CLINT BEARD RN Lisinopril (Lisinopril) 20 Mg Tablet, 1 TAB PO DAILY for HTN, #30 Ref 5 (Reported) Entered as Reported by: SUNDAY MARTINEZ RN on 09/10/191416 Last Taken: Unknown Dose on 09/10/19 Last Action: Continued on 09/11/191055 by CLINT BERAD RN Meloxicam (Meloxicam) 15 Mg Tablet, 1 TAB PO DAILY for pain for 30 Days, #30 Ref 0 (Reported) Entered as Reported by: SUNDAY MARTINEZ RN on 09/10/191417 Last Taken: Unknown Dose on 09/10/19 Last Action: Converted on 09/11/191055 by CLINT BEARD RN Metformin Hcl (Metformin Hcl Er) 500 Mg Tab.er.24h, 500 MG PO BIDWMEALS for DM, (Reported) Entered as Reported by: SUNDAY MARTINEZ RN on 09/10/191416 Last Taken: Unknown Dose on 09/10/19 Last Action: Continued on 09/11/191055 by CLINT BEARD RN Pantoprazole Sodium (Protonix) 20 Mg Tablet.dr, 40 MG PO DAILY for GERD, (Reported) Entered as Reported by: SUNDAY MARTINEZ RN on 09/10/19 1417 Last Taken: Unknown Dose on 09/10/19 Last Action: Converted on 09/11/19 1056 by CLINT BEARD RN Scheduled PRN Tramadol Hcl (Tramadol Hcl) 50 Mg Tablet, 50 MG PO PRN Q6HRS PRN for PAIN for 6 Days, #16 Prescribed by: BRENDAN MANDUJANO MD on 09/12/19 1130 Justicifation of Admission Dx: Justifications for Admission: Justification of Admission Dx: Yes BRENDAN MANDUJANO MD Sep 12, 2019 11:34
--- NOTE | 2019-09-12 13:00 | NUR ---
Discharge Note: JOSE NAVARRETE Discharge instructions and discharge home medications reviewed with Patient and a copy given. All questions have been answered and understanding verbalized. The following instructions and handouts were given: information about follow up appointments, medications, etc. Discontinued lines and drains: IV lines in right and left arms removed, catheter tips intact. Patient discharged to home with self care with family member, wheelchair used for mobility to discharge vehicle.
== END 2019-09-12 13:00 | disposition home or self-care (01) | DRG 872 ==
LOC: ER 02:35 → 4 NORTH 05:10
PROVIDERS: ADMIT Internal Medicine; ATTEND Internal Medicine
DX: A41.9 Sepsis, unspecified organism (principal); A04.9 Bacterial intestinal infection, unspecified; I10 Essential (primary) hypertension; D64.9 Anemia, unspecified; E11.43 Type 2 diabetes mellitus with diabetic autonomic (poly)neuropathy; E53.8 Deficiency of other specified B group vitamins; E61.1 Iron deficiency; H40.9 Unspecified glaucoma; K31.84 Gastroparesis; K44.9 Diaphragmatic hernia without obstruction or gangrene; K57.30 Diverticulosis of large intestine without perforation or abscess without bleeding; M19.90 Unspecified osteoarthritis, unspecified site; Z83.3 Family history of diabetes mellitus; Z79.899 Other long term (current) drug therapy; Z90.49 Acquired absence of other specified parts of digestive tract
CPT/HCPCS: 36415; 74177; 80053; 81001; 82607; 82962; 83540; 83550; 83605; 83690; 84484; 85025; 85610; 85730; 93005; 96361; 96365; 96368; 96375; J0744; J1885; J2270; J2405; J3420; J3490; J7030; Q9967; 99285-25; G0378

== ENCOUNTER 2020-12-01 02:34 | Emergency (ER) | payer SELFPAY ==
[~2020-12-01] VITALS: Ht 170.2 cm; Wt 69.5 kg
[~2020-12-01 02:34] MED LIST: BIMA2.5D5 EACHEYE; CA C1TAB29 PO; CALC-31 PO; LISI20TA18 PO; MELO15TA23 PO; METF-658 PO; PANT20TA2 PO; TRAM50TA PO
--- NOTE | 2020-12-01 02:53 | PHYS DOC ---
Past Medical History Past Medical History: Diabetes-Type II, High Cholesterol, Hypertension Past Surgical History: No Surgical History Smoking Status: Former Smoker Alcohol Use: Occasionally General Adult HPI: HPI: Patient is a 65-year-old female presenting via EMS for presyncope. Patient reports she had large meal for dinner approximately 7 hours prior to arrival that consisted of crab, shrimp and other seafood dishes at [facility]. She reports she went home and was asymptomatic but awoke in her sleep approximately 6 hours after food ingestion with generalized nausea, abdominal cramping and diarrhea. States she was on the commode and when bearing down she began to feel lightheaded and dizzy. When she finished going to the bathroom and stood up, her feelings worsened prompting her to call EMS. On arrival, patient was found to be hypotensive 90/50 otherwise hemodynamically stable. There were no falls, no trauma, but ongoing symptoms were enough to transfer patient to our facility for evaluation. Patient states similar symptoms occurred several years ago and she was dehydrated at that time, her condition improved with IV fluid rehydration. On arrival, she complains of acid reflux symptoms and states that her dizziness has improved. She does feel dehydrated. She is fully vaccinated against COVID-19 Review of Systems: Review of Systems: Fourteen body systems of review of systems have been reviewed. See HPI for pertinent positives and negative responses, other tapia all other systems are negative, non-pertinent or non-contributory Heart Score: C/O Chest Pain: No Risk Factors: Risk Factors: DM, Current or recent (<one month) smoker, HTN, HLP, family h istory of CAD, obesity. Risk Scores: Score 0 - 3: 2.5% MACE over next 6 weeks - Discharge Home Score 4 - 6: 20.3% MACE over next 6 weeks - Admit for Clinical Observation Score 7 - 10: 72.7% MACE over next 6 weeks - Early Invasive Strategies Allergies: Allergies: Allergies Coded Allergies Type Severity Reaction Last Updated Verified No Known Drug Allergies 09/10/19 No Physical Exam: PE: Constitutional: Well developed, well nourished, no acute distress, non-toxic appearance. HENT: Normocephalic, atraumatic, bilateral external ears normal, oropharynx moist, no oral exudates, nose normal. Eyes: PERRLA, EOMI, conjunctiva normal, no discharge. Neck: Normal range of motion, no tenderness, supple, no stridor. Cardiovascular: Heart rate regular, sinus rhythm, no murmurs rubs or gallops Lungs & Thorax: Bilateral breath sounds clear to auscultation Abdomen: Bowel sounds normal, soft, no tenderness, no masses, no pulsatile masses. Nonsurgical abdomen, no peritoneal signs Skin: Warm, dry, no erythema, no rash. Back: No tenderness, no CVA tenderness. Extremities: No tenderness, no cyanosis, no clubbing, ROM intact, no edema. Neurologic: Alert and oriented X 3, grossly normal motor & sensory function, no focal deficits noted. Psychologic: Affect normal, judgement normal, mood normal. Current Patient Data: Labs: Current Medications Medications (Trade) Dose Ordered Sig/Saloni Route PRN Reason Start Time Stop Time Status Last Admin Dose Admin Sodium Chloride 1,000 ml @ 1,000 mls/hr 1X ONCE IV 12/01/20 03:30 12/01/20 04:29 DC 12/01/20 03:23 Ondansetron HCl (Zofran) 4 mg 1X ONCE IVP 12/01/20 04:00 12/01/20 04:01 DC 12/01/20 04:06 Pantoprazole Sodium (PROTONIX VIAL for IV PUSH) 40 mg 1X ONCE IVP 12/01/20 04:00 12/01/20 04:01 DC 12/01/20 04:08 Vital Signs: Vital Signs Date Time Temp Pulse Resp B/P (MAP) Pulse Ox O2 Delivery O2 Flow Rate FiO2 12/01/20 02:39 97.9 76 18 159/77 (104) 100 Room Air 97.9 Vital Signs Date Time Temp Pulse Resp B/P (MAP) Pulse Ox O2 Delivery O2 Flow Rate FiO2 12/01/20 02:39 97.9 76 18 159/77 (104) 100 Room Air 97.9 EKG: EKG: EKG ordered and interpreted by myself at 0310 hrs. is sinus rhythm at 79 bpm, unremarkable intervals, no axis deviation, no acute ischemic findings, no STEMI Radiology/Procedures: Radiology/Procedures: [] Course & Med Decision Making: Course & Med Decision Making ABCs unremarkable. HPI, physical exam and comprehensive ER work-up nonconcerning for any emergent or surgical issues Patient symptoms improved with IV fluid rehydration and antiemetics. She is feeling significantly better and asymptomatic and was requesting ER departure near end of ER visit I reviewed all findings with patient. I agree there is little indication for further diagnostic work-up or aggressive intervention in ER setting. Close PCP follow-up advised Strict return precautions were discussed with good understanding by patient and significant other at bedside, all questions and concerns addressed prior to ER departure Carmenza Disclaimer: Carmenza Disclaimer: This electronic medical record was generated, in whole or in part, using a voice recognition dictation system. Departure Departure Impression: Primary Impression: Nausea Additional Impressions: Nonspecific abdominal pain Dizziness Disposition: HOME / SELF CARE / HOMELESS Condition: IMPROVED Referrals: DRE AGUIRRE MD (PCP) Additional Instructions: You were seen in our ER for dizziness. Your vitals, history, physical ex amination and comprehensive ER work-up was nonconcerning for any emergent or surgical issues. As disclosed, I suspect likely self-limiting disease course given recent questionable food choices and at [facility]. This, compounded with the fact that you were on the commode and changed positions are likely the cause of your dizziness and reported blood pressure by EMS prior to arrival. Your symptoms improved with a stomach medication, antinausea medication and IV fluid. Joint decision was made to defer any further diagnostic work-up or intervention in ER setting given improvement in your symptoms. Close PCP follow-up this upcoming week advised for repeat evaluation to ensure symptomatic improvement. If any concerning signs or symptoms present prior to outpatient follow-up please do not hesitate to come back for repeat evaluation. It was a pleasure to take care of you and I wish you the best going forward ANGELA MARVIN DO Dec 01, 2020 02:53
[2020-12-01 03:03] LABS: BASO % 1 % (0-3); EOS # 0.1 x10^3/uL (0.0-0.7); EOS % 2 % (0-3); HEMATOCRIT 40.4 % (36.0-47.0); HEMOGLOBIN 13.5 g/dL (12.0-15.5); LYMPH # 3.7 x10^3/uL (1.0-4.8); LYMPH % 55 % (24-48); MEAN CORPUSCULAR HEMOGLOBIN 28 pg (25-35); MEAN CORPUSCULAR HGB CONC 34 g/dL (31-37); MEAN CORPUSCULAR VOLUME 83 fL (79-100); MONO # 0.3 x10^3/uL (0.0-1.1); MONO % 4 % (0-9); NEUT # 2.6 x10^3/uL (1.8-7.7); NEUT % 39 % (31-73); PLATELET COUNT 310 x10^3/uL (140-400); RED BLOOD COUNT 4.89 x10^6/uL (3.50-5.40); RED CELL DISTRIBUTION WIDTH 14.9 % (11.5-14.5); WHITE BLOOD COUNT 6.7 x10^3/uL (4.0-11.0)
[2020-12-01 03:17] LABS: CALCIUM 9.7 mg/dL (8.5-10.1); CREATININE 1.1 mg/dL (0.6-1.0); GFR 60.1; POTASSIUM 3.9 mmol/L (3.5-5.1)
[2020-12-01 03:23] LABS: ALBUMIN 3.6 g/dL (3.4-5.0); ALBUMIN/GLOBULIN RATIO 0.9 (1.0-1.7); TOTAL BILIRUBIN 0.3 mg/dL (0.2-1.0); TOTAL PROTEIN 7.6 g/dL (6.4-8.2)
--- NOTE | 2020-12-01 03:28 | EKG ---
[facility] [address] [place] [address] Test Date: 2020-12-01 Test Time: 03:02:20 Pat Name: DELANEY NAVARRETE Department: Room: Gender: F [employer] Equipment Operator: : [id number] Requested By: ANGELA AMRVIN Order Number: [id number] Reading MD: Measurements Intervals Fletcher Rate: 79 P: 47 LA: 152 QRS: 37 QRSD: 78 T: 36 QT: 360 QTc: 414 Interpretive Statements SINUS RHYTHM QRS(T) CONTOUR ABNORMALITY CONSIDER ANTEROLATERAL MYOCARDIAL DAMAGE POSSIBLY ABNORMAL ECG RI6.01 No previous ECG available for comparison
[2020-12-01] MEDS ORDERED: IV NORMAL SALINE 1000ML BAG 1,000 ML IV ONE (03:30)
[2020-12-01] MEDS ORDERED: ONDANSETRON PF 4 MG/2 ML VIAL. IVP ONE (04:00)
[2020-12-01] MEDS ORDERED: PANTOPRAZOLE IV PUSH 40 MG VIAL. IVP ONE (04:00)
[2020-12-01 05:30] VITALS: BP 124/66
== END 2020-12-01 05:00 | disposition home or self-care (01) ==
LOC: ER 02:34
DX: R11.0 Nausea (principal); R42 Dizziness and giddiness; R10.9 Unspecified abdominal pain; R19.7 Diarrhea, unspecified; E11.9 Type 2 diabetes mellitus without complications; E78.00 Pure hypercholesterolemia, unspecified; I10 Essential (primary) hypertension; Z87.891 Personal history of nicotine dependence; K21.9 Gastro-esophageal reflux disease without esophagitis
CPT/HCPCS: 36415; 80053; 84484; 85025; 93005; 96361; 96374; 96375; 99285; C9113; J2405; J7030